=== PATIENT | male | born 1960 | race Hispanic/Latino ===

== ENCOUNTER 2017-09-05 07:53 | Outpatient (CLI) | payer OTHER ==
--- NOTE | 2017-09-05 08:21 | XRay Report ---
LEFT KNEE RADIOGRAPHS INDICATION: Left knee pain. COMPARISON: None similar at this institution. FINDINGS: AP, lateral, tunnel and sunrise left knee views demonstrate intact bony articulation. Slight medial compartment narrowing not entirely excluded. Minimal spurring of lateral projecting tibial spine. Superior patellar enthesophyte. Normal soft tissues without evidence of suprapatellar effusion. CONCLUSION: No acute left knee radiographic abnormality with slight degenerative changes questioned. Please correlate. Thank you for the opportunity to participate in this patient's care.
== END 2017-09-05 07:54 | disposition home or self-care (01) ==
LOC: SPVIMAG 07:53
PROVIDERS: ATTEND Orthopaedic Surgery
DX: M76.892 Other specified enthesopathies of left lower limb, excluding foot (principal)